=== PATIENT | male | born 1965 | race Two or more races ===

== ENCOUNTER → 2018-08-27 | Outpatient (CLI) | payer OTHER ==
[~2018-08-27] VITALS: Ht 172.7 cm; Wt 74.8 kg
[~2018-08-27] MED LIST: ADENOSINE 63 MG in GIVE UN-DILUTED 0 ML IV STA
[2018-08-27 09:54] VITALS: BP 111/80
== END | disposition home or self-care (01) ==
LOC: XY 08:35
PROVIDERS: ATTEND Internal Medicine
DX: R07.9 Chest pain, unspecified (principal)
CPT/HCPCS: 78452; 93017; A9500; J0153

== ENCOUNTER → 2018-10-25 | Outpatient (CLI) | payer OTHER | END | disposition home or self-care (01) | LOC: XYW 07:11 | PROVIDERS: ATTEND Internal Medicine | DX: R07.89 Other chest pain (principal) | CPT/HCPCS: 93306 ==